=== PATIENT | male | born 1985 | race Caucasian/White ===

== ENCOUNTER 2024-09-26 08:41 | Outpatient (AMB) | payer OTHER, SELFPAY ==
[2024-09-26 08:54] VITALS: BP 100/65; PULSE 84; RESP 17; TEMP 36.3; O2SAT 99; BMI 24.0
--- NOTE | 2024-09-26 08:54 | ORTHONT_ITS ---
Vital signs 09/26/24 08:54 Height 1.78 m Height Method Stated Weight 75.892 kg Weight Measurement Method Standing Scale BMI 24.0 BP 100/65 Blood Pressure Source Automatic Cuff Blood Pressure Location Left Upper Arm Position Sitting Respiration 17 Pulse 84 Pulse Source Monitor Temp 97.4 F Temp Source Temporal Artery Scan Pulse Oximetry (%) 99 Oxygen Delivery Method Room Air Med/Allergies Allergies & Medications Allergies No Known Allergies Allergy (Verified 09/26/24 08:56) Medication Reconciliation naproxen 500 mg tablet 500 mg PO BID #60 tabs 09/26/24 [Rx] Exam Exam Patient is in no acute distress Bilateral upper extremities were evaluated. Right upper extremity demonstrates positive radial pulses. He can move entire extremity with full range of motion. Elbow range of motion is 0 to 130 degrees. He is tender to palpation over the lateral epicondyle. There is pinpoint tenderness and there is some radiation to the lateral aspects of the forearm. 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 We discussed anti-inflammatories as well as an injection of the lateral elbow. We also gave him a home exercise program from [employer]. Recommend Lateral epicondylitis cortisone injection as patient would like to proceed with conservative treatment at this time. The risks and benefits of the procedure were reviewed with the patient and patient gave verbal consent to cont inue with the procedure. Procedure: performed by Dr. Leal Using sterile technique the Right knee was thoroughly prepped with alcohol, and approximately 0.5 cc of Kenalog 40 mg/mL and 2 cc of 1% lidocaine was injected without resistance into the origin of the extensor tendon. The patient tolerated the procedure. Office Procedures GNS Level of Care Nursing/Assessment Patient Status: Initial/New Patient Nursing Assessment/Reassesment: Medication Reconciliation and Update PMH in EMR Coordination of Care: Complex Care and Chronic Disease 1-5, Consent,records obtained, informed consent, Education Simp Pt/Fam, 1 Ins Authorization, Lab and Imaging orders, Results/Orders obtained and Staff clarify orders New Patient Charge New Patient Point Assignment: 1104 New Patient Point Charge: MANAGER OF BROADCAST CONTENT Level 3 ([id number]) Surgical Proc/IM SQ injection Major Surgical Procedure: Yes (elbow injection) Medication Given Medication Given Medication Given: Yes Documented Dose Given: 2 Route: Infiitration Office Meds Xylocaine 10 mg/mL (1 %) injection solution Performing Provider: Cesario Leal MD Performing Location: [facility] Administered by: Cesario Leal MD on 09/26/24 09:38 Dose Route Admin Location Dispensed Lot Number Expiration Date [facility] Office Clinician 20 mL Infiltration 20 mL triamcinolone acetonide 40 mg/mL suspension for injection Performing Provider: Cesario Leal MD Performing Location: [facility] Administered by: Cesario Leal MD on 09/26/24 09:38 Dose Route Admin Location Dispensed Lot Number Expiration Date [facility] Office Clinician 40 mg intra-articular elbow 1 mL [id number] 03/19/26 [id number] TE [facility] [place] Intake Visit Data Collection New Patient or Established: New Patient (never been to [facility]) Reason for Visit:: RT ELBOW Seen by Clinical Staff ONLY (RN/MA): 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 PCP or OBGYN visit in last 3 months: Yes Hx Now: No Do You Feel Safe at Home: Yes Authorities Contacted: N/A Questionairres Past Medical History Past Medical History Have you ever been diagnosed with any of the following: Respiratory Problems Smoking: No Smoking Cessation Counseling: No Smoking Exposure: No Subjective Visit Visit for: new patient and elbow (RIGHT ) Immunization / Flu Flu Vaccine in the Last 12 Months: Yes Flu Vaccine Exclusion Criteria: Already Received History of Present Illness Chief complaint: Right elbow pain Patient is a 39-year-old male with 3 months of the right Elbow pain. This occurred after a recent trip to [facility]. The pain is on the lateral aspect of his elbow. 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 He thinks it happened when he was handling luggage. He has not tried any significant conservative treatment except for rest and a elbow brace Personal History Red flag PMH: none Pain Pain level (0-10): 5 Pain duration: 1 MONTH Pain location: anterior Pain quality: aching Pain timing: increases with activity Associated signs & symptoms: none Ambulatory data Ambulatory device: none Treatments Improvement with previous injections: No Improvement with PT: No Improvement with NSAIDS: n/a Review of Systems Review of Systems: All systems negative unless otherwise noted in HPI.
== END 2024-09-26 09:18 | disposition home or self-care (01) ==
LOC: HODSRG 08:41
PROVIDERS: PCP Family Medicine; Referring Provider Family Medicine; Supervising Provider Orthopaedic Surgery Adult Reconstructive Orthopaedic Surgery; Visit Provider Orthopaedic Surgery Adult Reconstructive Orthopaedic Surgery
DX: M77.11 Lateral epicondylitis, right elbow (principal); M25.521 Pain in right elbow
CPT/HCPCS: 20610; 99203; J3301; J3490; G0463